=== PATIENT | female | born 1970 | race Caucasian/White ===

== ENCOUNTER 2016-10-30 15:41 | Emergency (ER) | payer SELFPAY ==
[~2016-10-30] VITALS: Ht 160 cm; Wt 72.6 kg
[2016-10-30] MEDS ORDERED: Norco 5mg/325mg tab ORAL ONE (16:45)
[2016-10-30] MEDS ORDERED: IBUPROFEN600 MG ORAL (17:37)
[2016-10-30 18:00] VITALS: BP 130/60
[2016-10-30 18:05] VITALS: BP 130/60
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
== END 2016-10-30 18:05 | disposition home or self-care (01) ==
LOC: EDBD 15:41 → EMR 17:55
DX: T20.19XA Burn of first degree of multiple sites of head, face, and neck, initial encounter (principal); T31.0 Burns involving less than 10% of body surface; X10.0XXA Contact with hot drinks, initial encounter; Y92.511 Restaurant or cafe as the place of occurrence of the external cause
CPT/HCPCS: 99283